=== PATIENT | female | born 1980 | race Caucasian/White ===

== ENCOUNTER 2022-12-22 15:24 | Emergency (ER) | payer OTHER ==
[~2022-12-22] VITALS: Ht 149.9 cm; Wt 59.8 kg
[2022-12-22] VITALS (9 sets, daily range): BP systolic 80–125; BP diastolic 51–82
[2022-12-22 16:06] LABS: BASO% 0.5 % (0-3); EOS% 0.6 % (0-8); HEMATOCRIT 49.5 % (37.0-47.0); HEMOGLOBIN 16.8 g/dl (12.0-16.0); IMMATURE GRANULOCYTES 0.2 % (0.0-5.0); LYMPH% 31.1 % (15-41); MEAN CELL VOLUME 83.9 fL CALC (80.0-100.0); MEAN CORPUSCULAR HGB 28.5 pG CALC (26.0-32.0); MEAN CORPUSCULAR HGB CONC 33.9 g/dL CAL (32.0-36.0); MONO% 6.9 % (2-13); NEUT# 4.92 thou/uL (2.00-7.15); NEUT% 60.7 % (42-76); RED BLOOD COUNT 5.9 mill/uL (4.20-5.60)
[2022-12-22 16:25] LABS: ALBUMIN 4.4 g/dL (3.2-5.0); ALKALINE PHOSPHATASE 122 u/l (38-126); ANION GAP 14 (6-22 (CALC)); BILIRUBIN, TOTAL 0.9 mg/dL (0.02-1.3); BUN 17 mg/dL (7-17); BUN/CREATININE RATIO 22 (12-20 (CALC)); CARBON DIOXIDE 24 mmol/l (22-30); CHLORIDE 106 mmol/l (95-108); CREATININE 0.8 mg/dL (0.5-1.0); ETHYL ALCOHOL 0 mg/dl (0-30); GFR FOR AFR.AMER. > 60 ML/MIN (>=60 (CALC)); GFR OTHER RACES > 60 ML/MIN (>=60 (CALC)); POTASSIUM 3.9 mmol/l (3.5-5.1); SGOT/AST 40 u/l (14-36); SODIUM 140 mmol/l (137-146); TOTAL PROTEIN 8.2 g/dL (6.3-8.2)
[2022-12-22 16:39] LABS: URINE BILIRUBIN - DIPSTICK Negative (NEGATIVE); URINE BLOOD DIPSTICK Negative (NEGATIVE); URINE GLUCOSE - DIPSTICK Negative (NEGATIVE); URINE KETONE >=160 mg/dL (NEGATIVE); URINE LEUK ESTERASE Negative (NEGATIVE); URINE PH 5.5 (4.5-8.0); URINE PROTEIN - DIPSTICK Negative (NEG-TRACE); URINE SPECIFIC GRAVITY 1.025; URINE UROBILINOGEN - DIPSTICK 0.2 E.U./dL (0.2)
[2022-12-22 16:42] LABS: URINE COLOR Yellow; URINE NITRITE - DIPSTICK Positive (Negative)
[2022-12-22 16:43] LABS: URINE BACTERIA MODERATE hpf; URINE EPITHELIAL CELLS FEW EPI/hpf (0-FEW)
[2022-12-22] MEDS ORDERED: BACTRIM DS1 TAB PO (17:27)
[2022-12-22] MEDS ORDERED: XANAX0.25 MG PO ×2 (17:27→17:29)
[2022-12-22] MEDS ORDERED: CLONIDINE0.1 MG PO (17:27)
== END 2022-12-22 17:49 | disposition home or self-care (01) ==
LOC: ED 15:24
PROVIDERS: Family Medicine
DX: F13.139 Sedative, hypnotic or anxiolytic abuse with withdrawal, unspecified (principal); F41.9 Anxiety disorder, unspecified; N39.0 Urinary tract infection, site not specified; B96.20 Unspecified Escherichia coli [E. coli] as the cause of diseases classified elsewhere
CPT/HCPCS: J2060

== ENCOUNTER 2023-02-16 13:52 | Emergency (ER) | payer OTHER ==
[~2023-02-16] VITALS: Ht 149.9 cm; Wt 77.6 kg
[2023-02-16] VITALS (11 sets, daily range): BP systolic 99–128; BP diastolic 55–80
[~2023-02-16 13:52] MED LIST: BACTRIM DS1 TAB PO; CLONIDINE0.1 MG PO; XANAX0.25 MG PO
[2023-02-16 14:54] LABS: BASO% 0.6 % (0-3); EOS% 1.8 % (0-8); HEMATOCRIT 45.5 % (37.0-47.0); HEMOGLOBIN 15.4 g/dl (12.0-16.0); IMMATURE GRANULOCYTES 0.1 % (0.0-5.0); LYMPH% 37.5 % (15-41); MEAN CELL VOLUME 85.7 fL CALC (80.0-100.0); MEAN CORPUSCULAR HGB CONC 33.8 g/dL CAL (32.0-36.0); NEUT# 3.84 thou/uL (2.00-7.15); RED BLOOD COUNT 5.31 mill/uL (4.20-5.60)
[2023-02-16 14:55] LABS: URINE BILIRUBIN - DIPSTICK Negative (NEGATIVE); URINE BLOOD DIPSTICK Negative (NEGATIVE); URINE COLOR Yellow; URINE GLUCOSE - DIPSTICK Negative (NEGATIVE); URINE KETONE Negative (NEGATIVE); URINE LEUK ESTERASE Negative (NEGATIVE); URINE NITRITE - DIPSTICK Negative (Negative); URINE PH 5.5 (4.5-8.0); URINE PROTEIN - DIPSTICK Negative (NEG-TRACE); URINE UROBILINOGEN - DIPSTICK 0.2 E.U./dL (0.2)
[2023-02-16 15:12] LABS: ALBUMIN 3.7 g/dL (3.2-5.0); ALKALINE PHOSPHATASE 102 u/l (38-126); ANION GAP 14 (6-22 (CALC)); BILIRUBIN, TOTAL 0.7 mg/dL (0.02-1.3); BUN 10 mg/dL (7-17); BUN/CREATININE RATIO 16 (12-20 (CALC)); CARBON DIOXIDE 23 mmol/l (22-30); CHLORIDE 108 mmol/l (95-108); CREATININE 0.6 mg/dL (0.5-1.0); GFR FOR AFR.AMER. > 60 ML/MIN (>=60 (CALC)); GFR OTHER RACES > 60 ML/MIN (>=60 (CALC)); LIPASE 131 u/l (23-300); SGOT/AST 33 u/l (14-36); SODIUM 141 mmol/l (137-146); TOTAL PROTEIN 6.7 g/dL (6.3-8.2)
[2023-02-16 15:43] LABS: TSH, 3RD GENERATION 0.58 uIU/mL (0.47 - 4.68)
[2023-02-16] MEDS ORDERED: [UNRECOGNIZED DRUG - OTHER] PO (17:07)
== END 2023-02-16 17:57 | disposition home or self-care (01) ==
LOC: ED 13:52
PROVIDERS: Emergency Medicine
DX: F13.10 Sedative, hypnotic or anxiolytic abuse, uncomplicated (principal); F41.9 Anxiety disorder, unspecified
CPT/HCPCS: J2060; S0164

== ENCOUNTER 2023-03-26 09:30 | Day surgery (SDC) | payer OTHER ==
[~2023-03-26] VITALS: Ht 149.9 cm; Wt 64.9 kg
[~2023-03-26 09:30] MED LIST changes: +ALPRAZOLAM ER1 MG PO; +[UNRECOGNIZED DRUG - OTHER] PO
[2023-03-26 12:41] VITALS: BP 97/62
== END 2023-03-26 13:31 | disposition home or self-care (01) ==
LOC: ORM 09:30
PROVIDERS: ATTEND Internal Medicine Gastroenterology
DX: K52.9 Noninfective gastroenteritis and colitis, unspecified (principal); R10.30 Lower abdominal pain, unspecified

== ENCOUNTER 2023-05-02 09:58 | Emergency (ER) | payer OTHER ==
[2023-05-02] VITALS (10 sets, daily range): BP systolic 96–140; BP diastolic 58–83
[~2023-05-02] VITALS: Ht 149.9 cm; Wt 59.8 kg
[2023-05-02 10:35] LABS: BASO% 0.3 % (0-3); EOS% 1.4 % (0-8); HEMOGLOBIN 15.2 g/dl (12.0-16.0); IMMATURE GRANULOCYTES 0.3 % (0.0-5.0); LYMPH% 28.9 % (15-41); MEAN CELL VOLUME 86.2 fL CALC (80.0-100.0); MEAN CORPUSCULAR HGB 29.1 pG CALC (26.0-32.0); MEAN CORPUSCULAR HGB CONC 33.8 g/dL CAL (32.0-36.0); MONO% 7.5 % (2-13); NEUT# 4.01 thou/uL (2.00-7.15); NEUT% 61.6 % (42-76); RED BLOOD COUNT 5.22 mill/uL (4.20-5.60); RED CELL DISTRI WIDTH 12.4 % (11.5-15.5)
[2023-05-02 11:02] LABS: BUN 13 mg/dL (7-17); BUN/CREATININE RATIO 18 (12-20 (CALC)); CHLORIDE 106 mmol/l (95-108); CREATININE 0.8 mg/dL (0.5-1.0); GFR FOR AFR.AMER. > 60 ML/MIN (>=60 (CALC)); GFR OTHER RACES > 60 ML/MIN (>=60 (CALC)); POTASSIUM 4.1 mmol/l (3.5-5.1); SODIUM 140 mmol/l (137-146)
[2023-05-02 11:05] LABS: ANION GAP 10 (6-22 (CALC)); CARBON DIOXIDE 28 mmol/l (22-30)
[2023-05-02] MEDS ORDERED: FLEXERIL5 M1 PO (12:30)
[2023-05-02] MEDS ORDERED: MOTRIN800 MG PO (12:30)
[2023-05-02] MEDS ORDERED: PERCOCET 5/325M1 TAB PO (12:31)
== END 2023-05-02 12:42 | disposition home or self-care (01) ==
LOC: ED 09:58
PROVIDERS: Emergency Medicine
DX: M54.50 Low back pain, unspecified (principal); R10.32 Left lower quadrant pain; F41.9 Anxiety disorder, unspecified; Z72.0 Tobacco use
CPT/HCPCS: Q9967

== ENCOUNTER 2023-12-29 17:47 | Emergency (ER) | payer OTHER ==
[2023-12-29] VITALS (21 sets, daily range): BP systolic 92–126; BP diastolic 60–83
[~2023-12-29] VITALS: Ht 149.9 cm; Wt 68.0 kg
[~2023-12-29 17:47] MED LIST changes: +ALPRAZOLAM1 MG PO; +BUPRENORPHIN8 MG SL; +FLEXERIL5 M1 PO; +MOTRIN800 MG PO; +NAPROXEN500 MG PO; +PENICILLN VK500 MG PO; +PERCOCET 5/325M1 TAB PO
[2023-12-29] MEDS ORDERED: ASPIRIN LOW81 M1 PO (18:08)
[2023-12-29] MEDS ORDERED: CRESTOR40 MG PO (18:09)
[2023-12-29] MEDS ORDERED: NEURONTIN400 MG PO (18:10)
[2023-12-29 18:19] LABS: BASO% 0.4 % (0-3); EOS% 1.2 % (0-8); HEMATOCRIT 48.8 % (37.0-47.0); HEMOGLOBIN 16.3 g/dl (12.0-16.0); IMMATURE GRANULOCYTES 0.2 % (0.0-5.0); MEAN CELL VOLUME 86.5 fL CALC (80.0-100.0); MEAN CORPUSCULAR HGB 28.9 pG CALC (26.0-32.0); MEAN CORPUSCULAR HGB CONC 33.4 g/dL CAL (32.0-36.0); MONO% 7.6 % (2-13); NEUT# 5.56 thou/uL (2.00-7.15); NEUT% 56.6 % (42-76); RED BLOOD COUNT 5.64 mill/uL (4.20-5.60); RED CELL DISTRI WIDTH 12.5 % (11.5-15.5)
[2023-12-29 18:44] LABS: ALBUMIN 4.4 g/dL (3.2-5.0); ALKALINE PHOSPHATASE 82 u/l (38-126); ANION GAP 9 (6-22 (CALC)); BILIRUBIN, TOTAL 0.5 mg/dL (0.02-1.3); BUN 13 mg/dL (7-17); BUN/CREATININE RATIO 17 (12-20 (CALC)); CARBON DIOXIDE 25 mmol/l (22-30); CHLORIDE 113 mmol/l (95-108); CREATININE 0.8 mg/dL (0.5-1.0); ESTIMATED GFR 93 ML/MIN (>=90 (CALC)); SGOT/AST 29 u/l (14-36); SODIUM 143 mmol/l (137-146)
[2023-12-29 19:16] LABS: URINE BLOOD DIPSTICK Negative (NEGATIVE); URINE GLUCOSE - DIPSTICK Negative (NEGATIVE); URINE KETONE Negative (NEGATIVE); URINE LEUK ESTERASE Negative (NEGATIVE); URINE NITRITE - DIPSTICK Negative (Negative); URINE PH 5.5 (4.5-8.0); URINE PROTEIN - DIPSTICK Negative (NEG-TRACE); URINE SPECIFIC GRAVITY >=1.030; URINE UROBILINOGEN - DIPSTICK 0.2 E.U./dL (0.2)
[2023-12-29 19:17] LABS: URINE COLOR Yellow
== END 2023-12-29 22:48 | disposition home or self-care (01) ==
LOC: ED 17:47
PROVIDERS: Nurse Practitioner Family
DX: R00.2 Palpitations (principal); I44.4 Left anterior fascicular block; I10 Essential (primary) hypertension; M06.9 Rheumatoid arthritis, unspecified; E04.1 Nontoxic single thyroid nodule; I25.2 Old myocardial infarction; F41.9 Anxiety disorder, unspecified; Z72.0 Tobacco use; Z87.440 Personal history of urinary (tract) infections